=== PATIENT | male | born 1970 | race Caucasian/White ===

== ENCOUNTER → 2017-12-26 | Outpatient (CLI) | payer BC, SELFPAY ==
[~2017-12-26] MED LIST: IOHEXOL-350 50ML VIAL IV ONE
== END | disposition home or self-care (01) ==
LOC: RAH 08:51
PROVIDERS: ATTEND Nurse Practitioner Family
DX: M47.895 Other spondylosis, thoracolumbar region (principal); R59.0 Localized enlarged lymph nodes
CPT/HCPCS: 71260; Q9967